=== PATIENT | female | born 1935 | race Caucasian/White ===

== ENCOUNTER 2019-05-05 12:33 | Emergency (ER) | payer MEDICARE, BC ==
[~2019-05-05] VITALS: Ht 162.6 cm; Wt 88.6 kg
[~2019-05-05 12:33] MED LIST: APIX5TAB3 PO; ASPI81TA30 PO; ATOR20TA PO; BUDE10.22 INH; DILT120C62 PO; MECL12.584 PO; SOTA80TA PO; TIOT4MIS5 PO
[2019-05-05 12:34] VITALS: BP 107/80
[2019-05-05] MEDS ORDERED: HYDROcodone/acetaminophen 10/325mg tab PO ONE (14:20)
[2019-05-05] MEDS ORDERED: CYCL-1 PO (14:27)
--- NOTE | 2019-05-05 14:34 | NUR ---
PT TO XRAY
--- NOTE | 2019-05-05 14:40 | NUR ---
PT BACK FROM XRAY
== END 2019-05-05 15:26 | disposition home or self-care (01) ==
LOC: ER 12:41
DX: M54.5 Low back pain (principal); I48.91 Unspecified atrial fibrillation; E78.00 Pure hypercholesterolemia, unspecified; I10 Essential (primary) hypertension; J44.9 Chronic obstructive pulmonary disease, unspecified; I25.2 Old myocardial infarction; Z90.49 Acquired absence of other specified parts of digestive tract; Z95.0 Presence of cardiac pacemaker; Z98.51 Tubal ligation status; Z98.890 Other specified postprocedural states; Z88.8 Allergy status to other drugs, medicaments and biological substances; Z86.73 Personal history of transient ischemic attack (TIA), and cerebral infarction without residual deficits; Z88.2 Allergy status to sulfonamides; Z88.5 Allergy status to narcotic agent; Z79.82 Long term (current) use of aspirin; Z79.899 Other long term (current) drug therapy
CPT/HCPCS: 72100; 99283

== ENCOUNTER 2019-07-13 15:17 | Inpatient (IN) | payer MEDICARE, BC ==
[~2019-07-13] VITALS: Ht 162.6 cm; Wt 81.8 kg
[~2019-07-13 15:17] MED LIST changes: +CYCL-1 PO
[2019-07-13 15:58] LABS: BASOPHILS % (AUTO) 0.2 % (0-1); EOSINOPHILS % (AUTO) 0.3 % (0-6); HEMATOCRIT 38.3 % (35.0-45.0); LYMPHOCYTES # (AUTO) 0.5 X10'3 (1.1-4.8); LYMPHOCYTES % (AUTO) 3.9 % (21-51); MEAN CORPUSCULAR HEMOGLOBIN 30.5 PG (27.0-31.0); MEAN CORPUSCULAR HGB CONC 33.9 g/dL (33.0-36.5); MEAN PLATELET VOLUME 10.7 FL (7.4-10.4); MONOCYTES # (AUTO) 0.8 X10'3 (0-0.9); MONOCYTES % (AUTO) 5.4 % (2-12); NEUTROPHILS # (AUTO) 12.7 X10'3 (1.8-7.7); NEUTROPHILS % (AUTO) 90.2 % (42-75); PLATELET COUNT 150 X10'3 (140-440); RED BLOOD COUNT 4.25 X10'6 (4.20-5.60)
[2019-07-13 16:14] LABS: ALANINE AMINOTRANSFERASE 40 U/L (12-78); ALBUMIN 2.1 G/DL (3.4-5.0); ALBUMIN/GLOBULIN RATIO 0.4 (1.1-1.5); ALKALINE PHOSPHATASE 193 IU/L (46-116); ANION GAP 12 (8-16); ASPARTATE AMINO TRANSFERASE 46 U/L (10-37); BILIRUBIN,TOTAL 2.1 MG/DL (0.1-1.0); BLOOD UREA NITROGEN 29 MG/DL (7-18); BUN/CREATININE RATIO 20.9 (6.6-38.0); CHLORIDE 99 MMOL/L (99-107); CREATININE 1.39 MG/DL (0.40-0.90); GLUCOSE 115 MG/DL (70-104); SODIUM 138 MMOL/L (135-145); TOTAL CARBON DIOXIDE 27.2 MMOL/L (24-32); TOTAL PROTEIN 7.2 G/DL (6.4-8.2); eGFR 36 ML/MIN
[2019-07-13 16:15] LABS: LARGE PLATELETS FEW; PLATELET ESTIMATE NORMAL
[2019-07-13 16:19] LABS: POTASSIUM 2.8 MMOL/L (3.5-5.1)
[2019-07-13] MEDS ORDERED: potassium Cl 20 mEq SR tablet PO STA (17:03)
[2019-07-13] MEDS ORDERED: ipratropium/albuterol 3ml nebule NEB ONE (17:05)
[2019-07-13] MEDS ORDERED: DILT120T3 PO (17:30)
[2019-07-13] MEDS ORDERED: LEVO50TA8 PO (17:30)
[2019-07-13] MEDS ORDERED: DILT-35 PO (17:30)
[2019-07-13] MEDS ORDERED: FURO20TA4 PO (17:30)
[2019-07-13] MEDS ORDERED: DILT120T4 PO (17:33)
[2019-07-13] MEDS ORDERED: normal saline 1000ml 1,000 ML IV SCH (19:59)
[2019-07-13] MEDS ORDERED: magnesium Cl slow-release 64mg tablet PO PRN (20:00)
[2019-07-13] MEDS ORDERED: magnesium hydroxide 30ml (MOM) UD suspension PO PRN (20:00)
[2019-07-13] MEDS ORDERED: potassium Cl 20 mEq SR tablet PO PRN (20:00)
[2019-07-13] MEDS ORDERED: ondansetron/PF 4mg/2ml inj IV PRN (20:00)
[2019-07-13] MEDS ORDERED: acetaminophen 325mg tablet PO PRN (20:00)
[2019-07-13] MEDS ORDERED: mag hydrox/Alum hydrox/simeth 30ml oral suspension PO PRN (20:00)
[2019-07-13] MEDS ORDERED: albuterol 2.5 MG/3 ML nebule NEB PRN (20:10)
[2019-07-13 20:30] VITALS: BP 118/49
--- NOTE | 2019-07-13 20:30 | NUR ---
Patient in room PCU 3026. I have received report from Dexter RN (ER) and had the opportunity to ask questions and assume patient care. Patient arrived to PCU, with her granddaughter, by alejandro and ambulated with assistance to bed 3026A. Patient oriented to room, vitals taken, telemetry monitoring activated. Will monitor closely.
[2019-07-13 22:00] VITALS: BP 127/52
[2019-07-13] MEDS: atorvastatin 20mg tablet PO SCH (22:31)
[2019-07-13] MEDS: diltiazem 30mg tablet PO SCH (22:31)
[2019-07-14] VITALS (7 sets, daily range): BP systolic 105–130; BP diastolic 54–64
[2019-07-14] MEDS: albuterol 2.5 MG/3 ML nebule NEB SCH ×4 (02:53→19:55)
[2019-07-14 05:04] LABS: BASOPHILS % (AUTO) 0.1 % (0-1); EOSINOPHILS # (AUTO) 0.2 X10'3 (0-0.9); EOSINOPHILS % (AUTO) 1.5 % (0-6); HEMATOCRIT 37.5 % (35.0-45.0); HEMOGLOBIN 12.7 g/dl (12.0-16.0); LYMPHOCYTES # (AUTO) 0.7 X10'3 (1.1-4.8); LYMPHOCYTES % (AUTO) 5.4 % (21-51); MEAN CORPUSCULAR HEMOGLOBIN 30.2 PG (27.0-31.0); MEAN CORPUSCULAR HGB CONC 33.8 g/dL (33.0-36.5); MEAN CORPUSCULAR VOLUME 89.3 FL (78-98); MEAN PLATELET VOLUME 10.8 FL (7.4-10.4); MONOCYTES # (AUTO) 0.9 X10'3 (0-0.9); NEUTROPHILS # (AUTO) 10.7 X10'3 (1.8-7.7); PLATELET COUNT 142 X10'3 (140-440); RED CELL DISTRIBUTION WIDTH 15.6 % (11.5-14.5); WHITE BLOOD COUNT 12.4 X10'3 (4.5-11.0)
[2019-07-14 05:47] LABS: ALANINE AMINOTRANSFERASE 35 U/L (12-78); ALBUMIN 1.9 G/DL (3.4-5.0); ALBUMIN/GLOBULIN RATIO 0.4 (1.1-1.5); ALKALINE PHOSPHATASE 177 IU/L (46-116); ANION GAP 12 (8-16); ASPARTATE AMINO TRANSFERASE 43 U/L (10-37); BILIRUBIN,TOTAL 1.6 MG/DL (0.1-1.0); BLOOD UREA NITROGEN 33 MG/DL (7-18); BUN/CREATININE RATIO 24.6 (6.6-38.0); CALCIUM 8.8 MG/DL (8.5-10.1); CHLORIDE 102 MMOL/L (99-107); CREATININE 1.34 MG/DL (0.40-0.90); GLUCOSE 97 MG/DL (70-104); MAGNESIUM 1.6 MG/DL (1.5-2.4); POTASSIUM 3.4 MMOL/L (3.5-5.1); SODIUM 140 MMOL/L (135-145); TOTAL PROTEIN 6.5 G/DL (6.4-8.2); eGFR 38 ML/MIN
--- NOTE | 2019-07-14 06:25 | NUR ---
Problems reprioritized. Patient report given, questions answered & plan of care reviewed with Erin SRINIVASAN.
--- NOTE | 2019-07-14 06:45 | NUR ---
Patient in room PCU 3026. I have received report from Cheryl SRINIVASAN and had the opportunity to ask questions and assume patient care.
[2019-07-14 07:01] LABS: LARGE PLATELETS FEW; PLATELET ESTIMATE NORMAL
[2019-07-14] MEDS: budesonide 0.5mg/2ml UD nebule IH SCH ×2 (07:32→19:55)
[2019-07-14] MEDS: methylPREDNISolone sod succ 125mg/2ml vial IV SCH ×2 (07:48→19:28)
[2019-07-14] MEDS: aspirin 81mg tab.chew PO SCH (07:48)
[2019-07-14] MEDS: sotalol 80mg tablet PO SCH ×2 (07:48→19:28)
[2019-07-14] MEDS: levoTHYROXINE 25mcg tablet PO SCH (07:49)
[2019-07-14] MEDS: diltiazem 30mg tablet PO SCH ×2 (07:49→20:49)
[2019-07-14] MEDS: apixaban 5mg tablet PO SCH ×2 (07:49→19:28)
[2019-07-14] MEDS: furosemide 20MG tablet PO SCH (07:49)
[2019-07-14] MEDS: K and/or MAG REPLACEMENT MC SCH (08:00)
[2019-07-14] MEDS ORDERED: CefTRIAXone/D5W-Rocephin 1gm 50 ML IV SCH (08:00)
--- NOTE | 2019-07-14 08:12 | NUR ---
PAGER ID: [phone] MESSAGE: Joni Evans. Patient c/o 02/16 chest pain/pressure. Getting 12 lead EKG. Erin [id number]
[2019-07-14] MEDS: potassium Cl 20 mEq SR tablet PO PRN ×3 (10:26→20:49)
[2019-07-14] MEDS: levoFLOXACIN-Levaquin 250mg/D5 50 ML IV SCH (12:16)
[2019-07-14 12:41] LABS: TROPONIN I < 0.04 NG/ML (0.0-0.05)
[2019-07-14 13:55] LABS: CLARITY,URINE SLIGHTLY CLOUDY (Clear); COLOR,URINE YELLOW (Yellow); GLUCOSE, URINE NEGATIVE (Neg); KETONES,URINE NEGATIVE (Neg); LEUKOCYTE ESTERASE ,URINE MODERATE (Neg); NITRITES, URINE POSITIVE (Neg); OCCULT BLOOD,URINE LARGE (Neg); PROTEIN,URINE 30 mg/dl (Neg)
[2019-07-14 13:56] LABS: UA COLLECTION TYPE CLN CATCH MIDSTREAM
[2019-07-14 14:06] LABS: MUCUS STRANDS MODERATE /LPF (Neg); SQUAMOUS EPITHELIAL CELL,UR MANY /LPF (FEW)
[2019-07-14 14:07] LABS: BACTERIA,URINE 3+ /HPF (Neg); RBC,URINE 20-50 /HPF (0-2); WBC,URINE TNTC /HPF (0-4)
--- NOTE | 2019-07-14 15:03 | NUR ---
Patient in room PCU 3026. I have received report from ZARINA Khan and had the opportunity to ask questions and assume patient care.
--- NOTE | 2019-07-14 15:03 | NUR ---
Problems reprioritized. Patient report given, questions answered & plan of care reviewed with Adam SRINIVASAN. Patient stable at transfer of care.
--- NOTE | 2019-07-14 18:31 | NUR ---
Problems reprioritized. Patient report given, questions answered & plan of care reviewed with ZARINA Severino.
--- NOTE | 2019-07-14 18:33 | NUR ---
Patient in room PCU 3026. I have received report from Adam Baptiste and had the opportunity to ask questions and assume patient care.
[2019-07-14] MEDS: lactobacillus rhamnosus 10,000 MMU CELLS/CAPSULE PO SCH (19:31)
[2019-07-14] MEDS: atorvastatin 20mg tablet PO SCH (20:49)
--- NOTE | 2019-07-14 21:11 | NUR ---
Patient is reported under allergies to have allergy to potassium and this was noted before administering, however patient has received two doses of K without any adverse reactions. Will continue to monitor
[2019-07-15 02:00] VITALS: BP 114/60
[2019-07-15] MEDS: albuterol 2.5 MG/3 ML nebule NEB SCH ×2 (03:27→08:02)
[2019-07-15 04:56] LABS: BASOPHILS % (AUTO) 0.2 % (0-1); EOSINOPHILS % (AUTO) 0.2 % (0-6); HEMATOCRIT 38.8 % (35.0-45.0); LYMPHOCYTES # (AUTO) 0.6 X10'3 (1.1-4.8); LYMPHOCYTES % (AUTO) 4.5 % (21-51); MEAN CORPUSCULAR HEMOGLOBIN 30.4 PG (27.0-31.0); MEAN CORPUSCULAR HGB CONC 33.6 g/dL (33.0-36.5); MEAN CORPUSCULAR VOLUME 90.5 FL (78-98); MEAN PLATELET VOLUME 10.7 FL (7.4-10.4); MONOCYTES # (AUTO) 0.6 X10'3 (0-0.9); MONOCYTES % (AUTO) 4.7 % (2-12); NEUTROPHILS # (AUTO) 11.7 X10'3 (1.8-7.7); NEUTROPHILS % (AUTO) 90.4 % (42-75); PLATELET COUNT 160 X10'3 (140-440); RED BLOOD COUNT 4.28 X10'6 (4.20-5.60); RED CELL DISTRIBUTION WIDTH 15.8 % (11.5-14.5)
[2019-07-15 05:25] LABS: ALANINE AMINOTRANSFERASE 38 U/L (12-78); ALBUMIN 1.9 G/DL (3.4-5.0); ALBUMIN/GLOBULIN RATIO 0.4 (1.1-1.5); ALKALINE PHOSPHATASE 194 IU/L (46-116); ANION GAP 10 (8-16); ASPARTATE AMINO TRANSFERASE 45 U/L (10-37); BILIRUBIN,TOTAL 0.9 MG/DL (0.1-1.0); BLOOD UREA NITROGEN 40 MG/DL (7-18); BUN/CREATININE RATIO 31.7 (6.6-38.0); CALCIUM 9.3 MG/DL (8.5-10.1); CHLORIDE 104 MMOL/L (99-107); CREATININE 1.26 MG/DL (0.40-0.90); GLUCOSE 141 MG/DL (70-104); MAGNESIUM 1.9 MG/DL (1.5-2.4); POTASSIUM 4.1 MMOL/L (3.5-5.1); SODIUM 139 MMOL/L (135-145); TOTAL CARBON DIOXIDE 24.7 MMOL/L (24-32); TOTAL PROTEIN 6.8 G/DL (6.4-8.2); eGFR 40 ML/MIN
--- NOTE | 2019-07-15 06:15 | NUR ---
Patient in room PCU 3026. I have received report from ZARINA Severino and had the opportunity to ask questions and assume patient care. patient currently resting in bed, bed locked and low, call light in reach, no acute distress, will continue to monitor.
[2019-07-15 06:23] LABS: LARGE PLATELETS FEW; PLATELET ESTIMATE NORMAL
--- NOTE | 2019-07-15 06:34 | NUR ---
Problems reprioritized. Patient report given, questions answered & plan of care reviewed with Ferny SRINIVASAN.
[2019-07-15 06:47] VITALS: BP 127/68
[2019-07-15] MEDS: levoFLOXACIN-Levaquin 250mg/D5 50 ML IV SCH (07:20)
[2019-07-15] MEDS: methylPREDNISolone sod succ 125mg/2ml vial IV SCH (07:25)
[2019-07-15] MEDS: furosemide 20MG tablet PO SCH (07:28)
[2019-07-15] MEDS: levoTHYROXINE 25mcg tablet PO SCH (07:28)
[2019-07-15] MEDS: apixaban 5mg tablet PO SCH (07:28)
[2019-07-15] MEDS: diltiazem 30mg tablet PO SCH (07:29)
[2019-07-15] MEDS: lactobacillus rhamnosus 10,000 MMU CELLS/CAPSULE PO SCH (07:29)
[2019-07-15] MEDS: sotalol 80mg tablet PO SCH (07:29)
[2019-07-15] MEDS: aspirin 81mg tab.chew PO SCH (07:29)
[2019-07-15] MEDS: K and/or MAG REPLACEMENT MC SCH (08:00)
[2019-07-15] MEDS: budesonide 0.5mg/2ml UD nebule IH SCH (08:02)
--- NOTE | 2019-07-15 08:19 | NUR ---
RT called to ER, no post vitals taken. Addendum: 07/15/19 at 0819 by Danny Stinson RT Amended: Links added.
[2019-07-15] MEDS ORDERED: LEVO500T2 PO (09:44)
--- NOTE | 2019-07-15 11:09 | NUR ---
received orders for patient discharge, evaluated patient's ability to be without O2, patient tolerated room air well with SPO2 between 90-94% even with exertion. IV removed, catheter tip intact, hemostasis achieved. Patient and caregiver educated on discharge orders and instructed to follow up with primary care provider. Educated on DC meds, patient and caregiver verbalized understanding of medications and discharge teaching. Stated they will schedule appt with PCP. Wristband removed, telemetry removed, patient transported to [facility] via wheelchair by PCT, stable at time of discharge.
== END 2019-07-15 11:00 | disposition home or self-care (01) | DRG 189 ==
LOC: ER 15:18 → ED HOLD 20:18 → PCU 3S 20:30
PROVIDERS: ADMIT Internal Medicine; ATTEND Internal Medicine
DX: J96.01 Acute respiratory failure with hypoxia (principal); E43 Unspecified severe protein-calorie malnutrition; J44.1 Chronic obstructive pulmonary disease with (acute) exacerbation; I69.354 Hemiplegia and hemiparesis following cerebral infarction affecting left non-dominant side; J44.0 Chronic obstructive pulmonary disease with (acute) lower respiratory infection; N39.0 Urinary tract infection, site not specified; J20.9 Acute bronchitis, unspecified; E03.9 Hypothyroidism, unspecified; E78.00 Pure hypercholesterolemia, unspecified; E87.6 Hypokalemia; F17.200 Nicotine dependence, unspecified, uncomplicated; R74.8 Abnormal levels of other serum enzymes; I12.9 Hypertensive chronic kidney disease with stage 1 through stage 4 chronic kidney disease, or unspecified chronic kidney disease; I25.10 Atherosclerotic heart disease of native coronary artery without angina pectoris; I48.0 Paroxysmal atrial fibrillation; K40.90 Unilateral inguinal hernia, without obstruction or gangrene, not specified as recurrent; I49.5 Sick sinus syndrome; N18.3 Chronic kidney disease, stage 3 (moderate); N20.0 Calculus of kidney; Z79.01 Long term (current) use of anticoagulants; Z79.82 Long term (current) use of aspirin; Z79.899 Other long term (current) drug therapy; Z90.49 Acquired absence of other specified parts of digestive tract; Z82.49 Family history of ischemic heart disease and other diseases of the circulatory system; Z68.31 Body mass index [BMI] 31.0-31.9, adult
CPT/HCPCS: 36415; 71046; 74176; 76700; 80053; 81001; 83605; 83735; 83880; 84484; 85025; 87040; 87077; 87081; 87186; 87502; 87503; 93005; 94640; 94760; 97116; 97161; 97530; 99285; G0378; J0696; J1956; J2930; J7626

== ENCOUNTER 2021-04-19 08:34 | Emergency (ER) | payer MEDICARE, BC ==
[~2021-04-19] VITALS: Ht 167.6 cm; Wt 65.9 kg
[~2021-04-19 08:34] MED LIST changes: -BUDE10.22 INH; -CYCL-1 PO; -DILT120C62 PO; +DILT120T3 PO; +DILT120T4 PO; +FURO20TA4 PO; +LEVO50TA8 PO; -MECL12.584 PO; -TIOT4MIS5 PO; +UMEC62.5 INH
[2021-04-19 10:03] LABS: BASOPHILS # (AUTO) 0.1 X10'3 (0-0.2); BASOPHILS % (AUTO) 0.6 % (0-1); EOSINOPHILS # (AUTO) 0.3 X10'3 (0-0.9); EOSINOPHILS % (AUTO) 3.7 % (0-6); HEMOGLOBIN 12.9 g/dl (12.0-16.0); LYMPHOCYTES # (AUTO) 1.4 X10'3 (1.1-4.8); LYMPHOCYTES % (AUTO) 16.7 % (21-51); MEAN CORPUSCULAR HEMOGLOBIN 26.6 PG (27.0-31.0); MEAN CORPUSCULAR HGB CONC 32.2 g/dL (33.0-36.5); MEAN CORPUSCULAR VOLUME 82.8 FL (78-98); MEAN PLATELET VOLUME 8.7 FL (7.4-10.4); MONOCYTES # (AUTO) 0.8 X10'3 (0-0.9); MONOCYTES % (AUTO) 9.4 % (2-12); NEUTROPHILS % (AUTO) 69.6 % (42-75); PLATELET COUNT 321 X10'3 (140-440); RED BLOOD COUNT 4.83 X10'6 (4.20-5.60); RED CELL DISTRIBUTION WIDTH 18.6 % (11.5-14.5); WHITE BLOOD COUNT 8.6 X10'3 (4.5-11.0)
[2021-04-19 10:25] LABS: ALANINE AMINOTRANSFERASE 24 U/L (12-78); ALBUMIN 2.8 G/DL (3.4-5.0); ALBUMIN/GLOBULIN RATIO 0.6 (1.1-1.5); ALKALINE PHOSPHATASE 142 IU/L (46-116); ANION GAP 8 (8-16); ASPARTATE AMINO TRANSFERASE 18 U/L (10-37); BILIRUBIN,TOTAL 0.4 MG/DL (0.1-1.0); BLOOD UREA NITROGEN 16 MG/DL (7-18); BUN/CREATININE RATIO 12.2 (6.6-38.0); CALCIUM 8.9 MG/DL (8.5-10.1); CHLORIDE 105 MMOL/L (99-107); CREATININE 1.31 MG/DL (0.40-0.90); GLUCOSE 140 MG/DL (70-104); MAGNESIUM 1.9 MG/DL (1.5-2.4); POTASSIUM 3.4 MMOL/L (3.5-5.1); SODIUM 144 MMOL/L (135-145); TOTAL CARBON DIOXIDE 31.3 MMOL/L (24-32); TOTAL PROTEIN 7.2 G/DL (6.4-8.2); eGFR 38 ML/MIN
[2021-04-19 10:29] LABS: ANISOCYTOSIS 2+; LARGE PLATELETS FEW; PLATELET ESTIMATE NORMAL
[2021-04-19] MEDS ORDERED: HYDROcodone/acetaminophen 5mg/325mg tablet PO ONE (11:50)
[2021-04-19] MEDS ORDERED: ondansetron/PF 4mg/2ml inj IV PRN (12:25)
[2021-04-19] MEDS ORDERED: magnesium 4gm in 100ml NS 100 ML IV PRN (12:25)
[2021-04-19] MEDS ORDERED: HYDROcodone/acetaminophen 5mg/325mg tablet PO PRN (12:25)
[2021-04-19] MEDS ORDERED: normal saline 1000ml 1,000 ML IV SCH (12:25)
[2021-04-19] MEDS ORDERED: HYDROcodone/acetaminophen 10/325mg tab PO PRN (12:25)
[2021-04-19] MEDS ORDERED: mag hydrox/Alum hydrox/simeth 30ml oral suspension PO PRN (12:25)
[2021-04-19] MEDS ORDERED: potassium Cl 20 mEq SR tablet PO PRN ×2 (12:25)
[2021-04-19] MEDS ORDERED: magnesium 2GM in 50ml NS 50 ML IV PRN (12:25)
[2021-04-19] MEDS ORDERED: potassium Cl 40MEQ/1/2NS 520ml 520 ML IV PRN ×2 (12:25)
[2021-04-19] MEDS ORDERED: acetaminophen 325mg tablet PO PRN ×2 (12:25)
[2021-04-19] MEDS ORDERED: HYDR-3965 PO (13:38)
[2021-04-19 14:30] VITALS: BP 145/60
[2021-04-19] MEDS ORDERED: K and/or MAG REPLACEMENT MC SCH (20:00)
[2021-04-19] MEDS ORDERED: docusate sod 100mg capsule PO SCH (20:00)
== END 2021-04-19 14:36 | disposition home or self-care (01) ==
LOC: ER 08:34 → ED HOLD 12:24 → UNDOADMIN 12:24 → UNDODISIN 14:36
DX: S92.322A Displaced fracture of second metatarsal bone, left foot, initial encounter for closed fracture (principal); M79.672 Pain in left foot; E86.0 Dehydration; E87.6 Hypokalemia; N18.9 Chronic kidney disease, unspecified; I12.9 Hypertensive chronic kidney disease with stage 1 through stage 4 chronic kidney disease, or unspecified chronic kidney disease; I48.91 Unspecified atrial fibrillation; E78.00 Pure hypercholesterolemia, unspecified; J44.9 Chronic obstructive pulmonary disease, unspecified; Z86.73 Personal history of transient ischemic attack (TIA), and cerebral infarction without residual deficits; Z87.01 Personal history of pneumonia (recurrent); Z90.89 Acquired absence of other organs; Z95.0 Presence of cardiac pacemaker; Z98.51 Tubal ligation status; Z98.890 Other specified postprocedural states; Z72.89 Other problems related to lifestyle; Z88.5 Allergy status to narcotic agent; Z88.2 Allergy status to sulfonamides; Z88.8 Allergy status to other drugs, medicaments and biological substances; Z79.82 Long term (current) use of aspirin; Z79.899 Other long term (current) drug therapy; W19.XXXA Unspecified fall, initial encounter; Y93.89 Activity, other specified; Y92.89 Other specified places as the place of occurrence of the external cause; Y99.8 Other external cause status
CPT/HCPCS: 36415; 73660; 80053; 83735; 84484; 85008; 85025; 93005; 99285; G0378

== ENCOUNTER 2021-07-18 09:22 | Inpatient (IN) | payer MEDICARE, BC ==
[~2021-07-18] VITALS: Ht 175.3 cm; Wt 90.9 kg
[2021-07-18 09:45] LABS: ABG BASE EXCESS -3.5 mmol/L (-2.0-2.0); ABG HCO3 22.3 mmol/L (22.0-26.0); ABG OXYGEN SATURATION 98.1 % (94-97); ALLEN'S TEST POSITIVE; FMetHb 0.2 % (0.0-1.5); FO2Hb 96.9 % (94-97)
[2021-07-18] MEDS ORDERED: methylPREDNISolone sod succ 125mg/2ml vial IV ONE (10:10)
[2021-07-18] MEDS ORDERED: albuterol 2.5 MG/3 ML nebule NEB ONE (10:10)
[2021-07-18 10:19] LABS: BASOPHILS % (AUTO) 0.6 % (0-1); EOSINOPHILS % (AUTO) 0.2 % (0-6); HEMATOCRIT 37.1 % (35.0-45.0); HEMOGLOBIN 11.9 g/dl (12.0-16.0); LYMPHOCYTES # (AUTO) 0.7 X10'3 (1.1-4.8); LYMPHOCYTES % (AUTO) 10.4 % (21-51); MEAN CORPUSCULAR HEMOGLOBIN 26.4 PG (27.0-31.0); MEAN CORPUSCULAR VOLUME 82.3 FL (78-98); MEAN PLATELET VOLUME 7.9 FL (7.4-10.4); MONOCYTES # (AUTO) 0.6 X10'3 (0-0.9); MONOCYTES % (AUTO) 9.4 % (2-12); NEUTROPHILS % (AUTO) 79.4 % (42-75); PLATELET COUNT 362 X10'3 (140-440); RED CELL DISTRIBUTION WIDTH 19.2 % (11.5-14.5); WHITE BLOOD COUNT 6.3 X10'3 (4.5-11.0)
[2021-07-18 10:31] LABS: D-DIMER 0.72 MG/L FEU (0-0.50)
[2021-07-18 10:33] LABS: ALANINE AMINOTRANSFERASE 27 U/L (12-78); ALBUMIN 2.5 G/DL (3.4-5.0); ALBUMIN/GLOBULIN RATIO 0.5 (1.1-1.5); ALKALINE PHOSPHATASE 150 IU/L (46-116); ANION GAP 6 (8-16); ASPARTATE AMINO TRANSFERASE 28 U/L (10-37); BILIRUBIN,TOTAL 0.3 MG/DL (0.1-1.0); BLOOD UREA NITROGEN 21 MG/DL (7-18); BUN/CREATININE RATIO 15.2 (6.6-38.0); CALCIUM 8.7 MG/DL (8.5-10.1); CHLORIDE 105 MMOL/L (99-107); CREATININE 1.38 MG/DL (0.40-0.90); GLUCOSE 119 MG/DL (70-104); POTASSIUM 4.5 MMOL/L (3.5-5.1); SODIUM 140 MMOL/L (135-145); TOTAL CARBON DIOXIDE 29.3 MMOL/L (24-32); TOTAL PROTEIN 7.1 G/DL (6.4-8.2); eGFR 36 ML/MIN
[2021-07-18] MEDS ORDERED: furosemide 10 MG/1 ML 10ml inj IV ONE (10:55)
[2021-07-18 10:59] LABS: ANISOCYTOSIS 2+; LARGE PLATELETS FEW; PLATELET ESTIMATE NORMAL; POLYCHROMASIA FEW
[2021-07-18] MEDS ORDERED: LIDOcaine 2% 10ml TOPICAL JELLY (Urojet) TP ONE (11:30)
[2021-07-18] MEDS ORDERED: WARF-55 PO (13:34)
[2021-07-18] MEDS ORDERED: SOTA80TA73 PO (13:34)
[2021-07-18] MEDS ORDERED: magnesium hydroxide 30ml (MOM) UD suspension PO PRN (13:50)
[2021-07-18] MEDS ORDERED: mag hydrox/Alum hydrox/simeth 30ml oral suspension PO PRN (13:50)
[2021-07-18] MEDS ORDERED: ondansetron/PF 4mg/2ml inj IV PRN (13:50)
[2021-07-18] MEDS: ipratropium/albuterol 3ml nebule NEB SCH ×3 (14:48→23:19)
[2021-07-18] MEDS: furosemide 10 MG/1 ML 10ml inj IV SCH (20:30)
[2021-07-18] MEDS: methylPREDNISolone sod succ 125mg/2ml vial IV SCH (20:30)
[2021-07-18] MEDS: sotalol 80mg tablet PO SCH (20:31)
[2021-07-18] MEDS: atorvastatin 20mg tablet PO SCH (20:31)
[2021-07-18] MEDS: DOXYCYCLINE 100MG CAPSULE PO SCH (20:31)
[2021-07-18] MEDS: docusate sod 100mg capsule PO SCH (20:32)
--- NOTE | 2021-07-18 21:02 | NUR ---
Problems reprioritized. Patient report given, questions answered & plan of care reviewed with ED ZARINA Webb. Addendum: 07/19/21 at 0655 by Amie Thornton RN Patient in room [place] [address]. I have received report from ED ZARINA Webb and had the opportunity to ask questions and assume patient care.
[2021-07-18 21:52] VITALS: BP 118/43
--- NOTE | 2021-07-18 21:52 | NUR ---
The patient, VICENTE ABEBE, 85 y/o, F admitted by IVETH SHEN MD, was given written information regarding hospital policies, unit procedures and contact persons. All safety in place will continue monitor. See Admission information.
[2021-07-18 22:00] VITALS: BP 113/56
[2021-07-18 22:15] VITALS: BP 123/51
[2021-07-18 22:30] VITALS: BP 112/45
[2021-07-18 22:45] VITALS: BP 121/46
[2021-07-18] MEDS: diltiazem SR 60mg capsule (twice daily) PO SCH (23:37)
[2021-07-18] MEDS: acetaminophen 325mg tablet PO PRN (23:38)
[2021-07-18] MEDS: apixaban 5mg tablet PO SCH (23:38)
[2021-07-19] MEDS: acetaminophen 325mg tablet PO PRN (00:52)
[2021-07-19 02:00] VITALS: BP 111/42
[2021-07-19] MEDS: ipratropium/albuterol 3ml nebule NEB SCH ×5 (03:00→23:21)
[2021-07-19 06:00] VITALS: BP 104/55
--- NOTE | 2021-07-19 06:25 | NUR ---
Patient in room PCU 3016. I have received report from Amie SRINIVASAN and had the opportunity to ask questions and assume patient care.
[2021-07-19] MEDS: methylPREDNISolone sod succ 125mg/2ml vial IV SCH ×2 (07:49→22:30)
[2021-07-19] MEDS: furosemide 10 MG/1 ML 10ml inj IV SCH ×2 (07:49→22:29)
[2021-07-19] MEDS: DOXYCYCLINE 100MG CAPSULE PO SCH ×2 (07:50→22:30)
[2021-07-19] MEDS: apixaban 5mg tablet PO SCH ×2 (07:50→22:33)
[2021-07-19] MEDS: aspirin 81mg, enteric-coated 1 TAB TABLET.DR PO SCH (07:50)
[2021-07-19] MEDS: levoTHYROXINE 25mcg tablet PO SCH (07:50)
[2021-07-19] MEDS: docusate sod 100mg capsule PO SCH ×2 (07:50→22:29)
[2021-07-19] MEDS: sotalol 80mg tablet PO SCH ×2 (07:50→22:29)
[2021-07-19] MEDS ORDERED: diltiazem SR 60mg capsule (twice daily) PO SCH (08:00)
[2021-07-19] MEDS ORDERED: furosemide 20MG tablet PO SCH (08:00)
[2021-07-19 08:02] LABS: BASOPHILS % (AUTO) 0.1 % (0-1); EOSINOPHILS % (AUTO) 0 % (0-6); HEMATOCRIT 36.2 % (35.0-45.0); HEMOGLOBIN 11.7 g/dl (12.0-16.0); LYMPHOCYTES # (AUTO) 0.8 X10'3 (1.1-4.8); LYMPHOCYTES % (AUTO) 12.1 % (21-51); MEAN CORPUSCULAR HEMOGLOBIN 26.5 PG (27.0-31.0); MEAN CORPUSCULAR HGB CONC 32.2 g/dL (33.0-36.5); MEAN CORPUSCULAR VOLUME 82.3 FL (78-98); MEAN PLATELET VOLUME 8.3 FL (7.4-10.4); MONOCYTES # (AUTO) 0.5 X10'3 (0-0.9); MONOCYTES % (AUTO) 8.3 % (2-12); NEUTROPHILS # (AUTO) 5.2 X10'3 (1.8-7.7); NEUTROPHILS % (AUTO) 79.5 % (42-75); PLATELET COUNT 360 X10'3 (140-440); WHITE BLOOD COUNT 6.5 X10'3 (4.5-11.0)
[2021-07-19 08:11] LABS: ALANINE AMINOTRANSFERASE 22 U/L (12-78); ALBUMIN 2.4 G/DL (3.4-5.0); ALBUMIN/GLOBULIN RATIO 0.5 (1.1-1.5); ALKALINE PHOSPHATASE 134 IU/L (46-116); ANION GAP 9 (8-16); ASPARTATE AMINO TRANSFERASE 21 U/L (10-37); BILIRUBIN,TOTAL 0.3 MG/DL (0.1-1.0); BLOOD UREA NITROGEN 37 MG/DL (7-18); BUN/CREATININE RATIO 23.3 (6.6-38.0); CALCIUM 8.7 MG/DL (8.5-10.1); CHLORIDE 105 MMOL/L (99-107); CREATININE 1.59 MG/DL (0.40-0.90); GLUCOSE 137 MG/DL (70-104); SODIUM 142 MMOL/L (135-145); TOTAL CARBON DIOXIDE 28.5 MMOL/L (24-32); TOTAL PROTEIN 6.8 G/DL (6.4-8.2); eGFR 31 ML/MIN
[2021-07-19 09:23] LABS: ANISOCYTOSIS 2+; PLATELET ESTIMATE NORMAL
[2021-07-19 09:24] LABS: LARGE PLATELETS FEW
[2021-07-19 09:25] LABS: POLYCHROMASIA FEW
[2021-07-19 11:00] VITALS: BP 114/68
[2021-07-19] MEDS ORDERED: ondansetron 4mg rapidly disintigrating tab PO PRN (13:00)
[2021-07-19 15:00] VITALS: BP 105/64
[2021-07-19 18:00] VITALS: BP 119/49
--- NOTE | 2021-07-19 18:33 | NUR ---
Problems reprioritized. Patient report given, questions answered & plan of care reviewed with Amie SRINIVASAN.
[2021-07-19 22:00] VITALS: BP 119/64
[2021-07-19] MEDS: lactobacillus rhamnosus 10,000 MMU CELLS/CAPSULE PO SCH (22:29)
[2021-07-19] MEDS: atorvastatin 20mg tablet PO SCH (22:29)
[2021-07-19] MEDS: diltiazem SR 60mg capsule (twice daily) PO SCH (22:31)
--- NOTE | 2021-07-19 22:35 | NUR ---
ACCIDENTALLY DROPPED ELIQUIS 5MG TAB. TAB DISCARDED IN THE WASTE BIN
[2021-07-20 02:00] VITALS: BP 89/50
[2021-07-20] MEDS: ipratropium/albuterol 3ml nebule NEB SCH ×6 (03:33→23:13)
[2021-07-20 06:59] LABS: BASOPHILS % (AUTO) 0.2 % (0-1); EOSINOPHILS % (AUTO) 0 % (0-6); HEMATOCRIT 36.6 % (35.0-45.0); HEMOGLOBIN 11.6 g/dl (12.0-16.0); LYMPHOCYTES # (AUTO) 0.9 X10'3 (1.1-4.8); LYMPHOCYTES % (AUTO) 6.1 % (21-51); MEAN CORPUSCULAR HEMOGLOBIN 25.7 PG (27.0-31.0); MEAN CORPUSCULAR HGB CONC 31.5 g/dL (33.0-36.5); MEAN CORPUSCULAR VOLUME 81.5 FL (78-98); MEAN PLATELET VOLUME 8.5 FL (7.4-10.4); MONOCYTES # (AUTO) 0.6 X10'3 (0-0.9); MONOCYTES % (AUTO) 3.9 % (2-12); NEUTROPHILS # (AUTO) 12.7 X10'3 (1.8-7.7); NEUTROPHILS % (AUTO) 89.8 % (42-75); PLATELET COUNT 389 X10'3 (140-440); RED CELL DISTRIBUTION WIDTH 19.4 % (11.5-14.5); WHITE BLOOD COUNT 14.2 X10'3 (4.5-11.0)
[2021-07-20 07:03] VITALS: BP 110/39
[2021-07-20 07:34] LABS: ALANINE AMINOTRANSFERASE 16 U/L (12-78); ALBUMIN 2.4 G/DL (3.4-5.0); ALBUMIN/GLOBULIN RATIO 0.5 (1.1-1.5); ALKALINE PHOSPHATASE 121 IU/L (46-116); ANION GAP 11 (8-16); ASPARTATE AMINO TRANSFERASE 18 U/L (10-37); BILIRUBIN,TOTAL 0.3 MG/DL (0.1-1.0); BLOOD UREA NITROGEN 56 MG/DL (7-18); BUN/CREATININE RATIO 33.5 (6.6-38.0); CALCIUM 8.7 MG/DL (8.5-10.1); CHLORIDE 102 MMOL/L (99-107); CREATININE 1.67 MG/DL (0.40-0.90); GLUCOSE 141 MG/DL (70-104); SODIUM 140 MMOL/L (135-145); TOTAL CARBON DIOXIDE 26.6 MMOL/L (24-32); TOTAL PROTEIN 6.8 G/DL (6.4-8.2); eGFR 29 ML/MIN
[2021-07-20] MEDS: apixaban 5mg tablet PO SCH ×2 (09:05→19:58)
[2021-07-20] MEDS: aspirin 81mg, enteric-coated 1 TAB TABLET.DR PO SCH (09:05)
[2021-07-20] MEDS: sotalol 80mg tablet PO SCH ×2 (09:05→19:57)
[2021-07-20] MEDS: lactobacillus rhamnosus 10,000 MMU CELLS/CAPSULE PO SCH ×2 (09:05→19:58)
[2021-07-20] MEDS: docusate sod 100mg capsule PO SCH ×2 (09:05→19:58)
[2021-07-20] MEDS: DOXYCYCLINE 100MG CAPSULE PO SCH ×2 (09:06→19:59)
[2021-07-20] MEDS: methylPREDNISolone sod succ 125mg/2ml vial IV SCH ×2 (09:06→19:54)
[2021-07-20] MEDS: levoTHYROXINE 25mcg tablet PO SCH (09:23)
--- NOTE | 2021-07-20 09:23 | NUR ---
Hospitalist john on floor. Made aware of broken foot on L foot that was previously treated . Pt. has boot to wear on that foot, but no PT orders. Pt. c/o dizzeness when standing , normally uses a waler to bathroom and bedroom. Pt. requires 5LPM to exercise and 3LPM at rest. Usually on 2LPM at home. Orthostatics taken and given to MD. Pt. c/o suprapubic tenderness, and urgency feelingsh Addendum: 07/20/21 at 0936 by Татьяна Mallory RN computer cut off note- pt. has urgency although she has a f/c. Urine cloudy and [place]. 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 has increased confusion and forgetfulness. Pt. A&0 x 3 and has intermittent confusion with forgetfulness. Granddaughter / industrial tractor driver at bedside and states pt. didnt not recognize family members yesterday and this is not normal for her. Requested to hold lasix r/t lower BP. Hospitalist states she will look at chart and decide later. Will hold lasix until further follow through. does not want UA at this time and is thinking of placing an order to [facility]. Will await her orders.
[2021-07-20 09:46] LABS: ANISOCYTOSIS 2+; PLATELET ESTIMATE NORMAL
[2021-07-20 11:40] VITALS: BP 117/54
[2021-07-20] MEDS: furosemide 10 MG/1 ML 10ml inj IV SCH (12:58)
--- NOTE | 2021-07-20 14:23 | NUR ---
Nutrition consult: TC from RN stating pt requesting strawberry Ensure, recommend [place] LOZANO, d/w dietary. Addendum: 07/20/21 at [address] Amended: Links added.
[2021-07-20 15:00] VITALS: BP 120/55
--- NOTE | 2021-07-20 16:00 | NUR ---
Hurst DC'd with ease. pt tolerated well.
[2021-07-20 18:00] VITALS: BP 128/54
--- NOTE | 2021-07-20 18:26 | NUR ---
Gave report to Gonzalo SRINIVASAN.
--- NOTE | 2021-07-20 18:45 | NUR ---
Patient in room PCU 3016. I have received report from Татьяна SRINIVASAN and had the opportunity to ask questions and assume patient care.
[2021-07-20] MEDS: atorvastatin 20mg tablet PO SCH (20:00)
[2021-07-20] MEDS: diltiazem SR 60mg capsule (twice daily) PO SCH (20:00)
[2021-07-20] MEDS: lactose-reduced food (Ensure Enlive) - 237ml bottle PO SCH (20:52)
[2021-07-20 22:00] VITALS: BP 134/64
[2021-07-21 02:24] VITALS: BP 119/73
[2021-07-21] MEDS: ipratropium/albuterol 3ml nebule NEB SCH ×4 (03:12→17:32)
[2021-07-21 06:00] VITALS: BP 147/59
--- NOTE | 2021-07-21 06:32 | NUR ---
Problems reprioritized. Patient report given, questions answered & plan of care reviewed with Huang SRINIVASAN.
[2021-07-21] MEDS: lactose-reduced food (Ensure Enlive) - 237ml bottle PO SCH (08:00)
[2021-07-21 08:21] LABS: BASOPHILS % (AUTO) 0.1 % (0-1); EOSINOPHILS % (AUTO) 0 % (0-6); HEMATOCRIT 41.1 % (35.0-45.0); HEMOGLOBIN 13.1 g/dl (12.0-16.0); LYMPHOCYTES # (AUTO) 0.8 X10'3 (1.1-4.8); MEAN CORPUSCULAR HEMOGLOBIN 25.9 PG (27.0-31.0); MEAN PLATELET VOLUME 8.5 FL (7.4-10.4); MONOCYTES # (AUTO) 0.7 X10'3 (0-0.9); MONOCYTES % (AUTO) 3.3 % (2-12); NEUTROPHILS # (AUTO) 18.4 X10'3 (1.8-7.7); NEUTROPHILS % (AUTO) 92.6 % (42-75); PLATELET COUNT 506 X10'3 (140-440); RED BLOOD COUNT 5.07 X10'6 (4.20-5.60); RED CELL DISTRIBUTION WIDTH 19.4 % (11.5-14.5); WHITE BLOOD COUNT 19.8 X10'3 (4.5-11.0)
[2021-07-21 08:59] LABS: ALANINE AMINOTRANSFERASE 24 U/L (12-78); ALBUMIN/GLOBULIN RATIO 0.6 (1.1-1.5); ALKALINE PHOSPHATASE 133 IU/L (46-116); ANION GAP 8 (8-16); ASPARTATE AMINO TRANSFERASE 23 U/L (10-37); BILIRUBIN,TOTAL 0.4 MG/DL (0.1-1.0); BLOOD UREA NITROGEN 72 MG/DL (7-18); BUN/CREATININE RATIO 40.7 (6.6-38.0); CALCIUM 9.1 MG/DL (8.5-10.1); CHLORIDE 102 MMOL/L (99-107); CREATININE 1.77 MG/DL (0.40-0.90); GLUCOSE 149 MG/DL (70-104); POTASSIUM 4.3 MMOL/L (3.5-5.1); SODIUM 139 MMOL/L (135-145); TOTAL CARBON DIOXIDE 29.1 MMOL/L (24-32); TOTAL PROTEIN 7.8 G/DL (6.4-8.2); eGFR 27 ML/MIN
[2021-07-21] MEDS: apixaban 5mg tablet PO SCH (09:06)
[2021-07-21] MEDS: docusate sod 100mg capsule PO SCH (09:06)
[2021-07-21] MEDS: lactobacillus rhamnosus 10,000 MMU CELLS/CAPSULE PO SCH (09:07)
[2021-07-21] MEDS: sotalol 80mg tablet PO SCH (09:07)
[2021-07-21] MEDS: DOXYCYCLINE 100MG CAPSULE PO SCH (09:07)
[2021-07-21] MEDS: methylPREDNISolone sod succ 125mg/2ml vial IV SCH (09:09)
[2021-07-21] MEDS: aspirin 81mg, enteric-coated 1 TAB TABLET.DR PO SCH (09:10)
[2021-07-21] MEDS: furosemide 10 MG/1 ML 10ml inj IV SCH (09:13)
[2021-07-21 09:24] LABS: ANISOCYTOSIS 2+; HYPOCHROMASIA 1+; PLATELET ESTIMATE INCREASED; POLYCHROMASIA 2+
[2021-07-21 09:25] LABS: MICROCYTOSIS 1+
[2021-07-21] MEDS: levoTHYROXINE 25mcg tablet PO SCH (10:42)
[2021-07-21 10:44] LABS: CLARITY,URINE CLOUDY (Clear); COLOR,URINE BROWN (Yellow); GLUCOSE, URINE NEGATIVE (Neg); KETONES,URINE NEGATIVE (Neg); NITRITES, URINE NEGATIVE (Neg); OCCULT BLOOD,URINE LARGE (Neg); PH,URINE 8.5 (4.8-8.0); PROTEIN,URINE >=300 mg/dl (Neg); UA COLLECTION TYPE STRAIGHT CATH; UROBILINOGEN,URINE 0.2 E.U/dL (0.2-1.0)
[2021-07-21 10:45] LABS: LEUKOCYTE ESTERASE ,URINE LARGE (Neg)
[2021-07-21 10:52] LABS: BACTERIA,URINE 4+ /HPF (Neg); RBC,URINE 50-100 /HPF (0-2); SQUAMOUS EPITHELIAL CELL,UR NONE SEEN /LPF (FEW)
[2021-07-21 10:53] LABS: MUCUS STRANDS FEW /LPF (Neg); TRIPLE PHOSPHATE CRYST 1+ /HPF (NEGATIVE)
[2021-07-21] MEDS ORDERED: IPRA3AMP9 NEB ×2 (14:21→17:35)
[2021-07-21] MEDS ORDERED: PRED10TA23 PO (14:21)
[2021-07-21] MEDS ORDERED: DABI75CA3 PO (14:21)
[2021-07-21] MEDS ORDERED: CIPR250T4 PO (14:22)
[2021-07-21 15:00] VITALS: BP 133/60
--- NOTE | 2021-07-21 16:36 | NUR ---
DR. RAMOS PAGED: Fouzia Reed Rm [id number]: PRADAXA NOT COVERED BY INSURANCE. PHARMACY REQUESTING DIFFERENT BLOOD CLOT MED. FILIBERTO NEEDS DIAGNOSIS CODE AND NEEDS TO BE SENT ELECTRONIC. PAZ [id number]
--- NOTE | 2021-07-21 17:24 | NUR ---
2ND PAGED: Fouzia Reed Rm [id number]: PRADAXA NOT COVERED BY INSURANCE. PHARMACY REQUESTING DIFFERENT BLOOD CLOT MED. ORLINB NEEDS DIAGNOSIS CODE AND NEEDS TO BE SENT ELECTRONIC. PAZ [id number]
[2021-07-21] MEDS ORDERED: APIX5TAB3 PO (17:35)
--- NOTE | 2021-07-21 18:23 | NUR ---
PT STABLE FOR DISCHARGE PER MD ORDERS. ALL DISCHARGE INSTRUCTIONS REVIEWED WITH PATIENT AND ALL QUESTIONS ANSWERED. PT WILL MAKE OWN FOLLOW UP LIG[place]. WITH PCP. NEW RX'S E-SCRIPTED TO PHARMACY. PIV DISCONTINUED, CANNULA INTACT. KITCHEN WORKER DISCONTINUED. ALL BELONGINGS COLLECTED AND SENT WITH PATIENT. PT WAS WHEELED TO FRONT OF LOBBY WHERE PRIVATE VEHICLE WAS WAITING.
[2021-07-21] MEDS ORDERED: ciprofloxacin lact 400MG/200ML 200 ML IV SCH (20:00)
[2021-07-21] MEDS ORDERED: methylPREDNISolone sod succ/PF 40mg inj. IV SCH (20:00)
[2021-07-22] MEDS ORDERED: IPRA3AMP9 IH (09:48)
== END 2021-07-21 18:16 | disposition home health service (06) | DRG 189 ==
LOC: ER 09:23 → ED HOLD 14:03 → PCU 3S 21:45
PROVIDERS: ADMIT Family Medicine; ATTEND Family Medicine
PROC: 5A09357 Assistance with Respiratory Ventilation, Less than 24 Consecutive Hours, Continuous Positive Airway Pressure (ICD-10-PCS; principal; 2021-07-18)
PROC: CB121ZZ Planar Nuclear Medicine Imaging of Lungs and Bronchi using Technetium 99m (Tc-99m) (ICD-10-PCS; 2021-07-21)
DX: J96.21 Acute and chronic respiratory failure with hypoxia (principal); I50.33 Acute on chronic diastolic (congestive) heart failure; I13.0 Hypertensive heart and chronic kidney disease with heart failure and stage 1 through stage 4 chronic kidney disease, or unspecified chronic kidney disease; J44.1 Chronic obstructive pulmonary disease with (acute) exacerbation; N39.0 Urinary tract infection, site not specified; I48.91 Unspecified atrial fibrillation; Z66 Do not resuscitate; E78.00 Pure hypercholesterolemia, unspecified; F17.210 Nicotine dependence, cigarettes, uncomplicated; E03.9 Hypothyroidism, unspecified; N18.9 Chronic kidney disease, unspecified; I95.1 Orthostatic hypotension; Z20.822 Contact with and (suspected) exposure to COVID-19; Z86.73 Personal history of transient ischemic attack (TIA), and cerebral infarction without residual deficits; Z90.49 Acquired absence of other specified parts of digestive tract; Z88.5 Allergy status to narcotic agent; Z88.2 Allergy status to sulfonamides; Z91.041 Radiographic dye allergy status; Z95.0 Presence of cardiac pacemaker; Z98.51 Tubal ligation status; Z82.49 Family history of ischemic heart disease and other diseases of the circulatory system; Z81.8 Family history of other mental and behavioral disorders; Z71.6 Tobacco abuse counseling
CPT/HCPCS: 36415; 36600; 71045; 78582; 80053; 81001; 82803; 82948; 83605; 83880; 84443; 85008; 85018; 85025; 85379; 87040; 87077; 87081; 87088; 87186; 87635; 93005; 93306; 94640; 94660; 94760; 97116; 97161; 97530; 97535; 99285; A9539; A9540; C9803; G0378; J1940; J2930